=== PATIENT | female | born 1965 | race Caucasian/White ===

== ENCOUNTER 2021-12-14 02:30 | Outpatient (CLI) | payer BC, SELFPAY ==
[2021-12-14 09:07] LABS: Source Nasal/Nares
[2021-12-14 13:59] LABS: COVID-19 PCR Negative (Negative)
== END 2021-12-14 02:31 | disposition home or self-care (01) ==
PROVIDERS: PCP Nurse Practitioner Family; Visit Provider Surgery
DX: Z20.822 Contact with and (suspected) exposure to COVID-19 (principal); Z01.818 Encounter for other preprocedural examination
CPT/HCPCS: 87635

== ENCOUNTER 2021-12-16 11:28 | Day surgery (SDC) | payer BC, SELFPAY ==
[2021-12-16] VITALS (12 sets, daily range): BP systolic 117–153; BP diastolic 77–93; PULSE 56–100; RESP 14–19; TEMP 36–36.8; O2SAT 95–100; BMI 25.1
--- NOTE | 2021-12-16 07:40 | W.PM.OP ---
Date of service: 12/16/21 Time of Service: 14:37 Operative Note Operative Note DATE OF PROCEDURE: 12/16/21 PRE-OP DIAGNOSIS: Biliary Colic POST-OP DIAGNOSIS: same PROCEDURE: Laparoscopic Cholecystectomy SURGEON: Angelita Longoria POLICY CHECKER: Conchita Bill ANESTHESIA TYPE: Local By Surgeon and General LMA/ETT Refer to Anesthesia Record ESTIMATED BLOOD LOSS: 15 PATHOLOGY: other (Gallbladder) COMPLICATIONS: None Patient was transported to: PACU Patient's condition: stable Indications: Mrs Donis is a pleasant 56-year-old female who has been feeling unwell since at least July.? She has intermittent nausea as well as intermittent abdominal pain which is triggered by food.? HIDA scan revealed a low ejection fracture.? We discussed a laparoscopic cholecystectomy in detail including the risks and complications.? Because of her vertigo and MS she may need to stay at least overnight depending on how well she wakes up and whether she has nausea and vomiting.? She did have COVID more than 4 weeks ago but has no residual cough or shortness of breath. Risks, benefits, complications were reviewed with the patient in the office.? Complications include but are not limited to bleeding, infection, injury to stomach, small bowel and large bowel, injury to the pancreas, injury to the common bile duct necessitating drainage and referral to tertiary center for repair, bile leak, adverse reactions to the medications, complications of intubation including a sore throat or injury to the uvula, LA, stroke and even .? Questions were entertained and answered to her satisfaction and she wished to proceed.? No guarantees were given or implied. Proceed with laparoscopic cholecystectomy Findings: normal appearing Gallbladder adhesions of the stomach to the gallbladder Procedure Description: After informed consent was obtained the patient was brought to the operating room, placed in a supine position and monitors were applied. SCDs were applied to her lower extremities and she was placed under general anesthesia and intubated without difficulty. Her abdomen was then prepped and draped in a sterile fashion using ChloraPrep. At this point a timeout was done and the patient's name, date of , procedure type, allergies to medications, metal in her body, antibiotic and DVT prophylaxis, and fire risk was assessed. At this point 0.25% Bupivocaine was injected just above the umbilicus into the dermis and subcutaneous tissue. A 5 mm incision was made with an 11 blade. The skin next to the incision was grasped with penetrating towel clamps and while pulling up on the skin a 5 mm port was placed under direct visualization. The abdomen was insuflated and then 3 more ports were placed. A 12 mm port was placed in the subxiphoid area and two 5 mm ports were placed in the right upper quadrant. The liver was inspected and looked normal. The patient's bed was then turned to the left and her head was brought up. The gallbladder was inspected and there were some adhesions from the omentum to the gallbladder and from the stomach to the gallbladder. The gallbladder was grasped at the body and pushed towards the right shoulder, this allowed me to visualize the neck of the gallbladder. The neck was grasped and pulled towards the right flank and down allowing me to visualize the lymph node. Using a [place] dissector with cautery the lymph node was gently dissected away from the tissues and the fatty tissue was also dissected away. The cystic duct was identified it was normal in size. The duct was dissected 360 degrees using the [place] dissector in order for me to visualize its entrance into the gallbladder. Liver was noted behind it. There were no other structures right behind. Critical view was achieved. 3 clips were placed one proximal and 2 distal and the cystic duct was cut. The cystic artery was then identified and dissected 360 degrees. It was located just medial to the cystic duct. It was visualized going into the gallbladder. Once dissected 3 more clips were placed one proximal and 2 distal and the artery was cut. Using the hook dissector the gallbladder was then dissected away from the liver bed and placed into an Endo Catch bag and pulled through the 12 mm port site. I did have some Bile spill. The 12 mm port was placed back into the abdomen under direct visualization. The liver bed was inspected no bleeding was noted. The abdomen was then irrigated with a liter of normal saline until the effluent was clear. 20 cc of the local was then sparayed over the liver to help with post-operative pain. The 12 mm and the 2 right upper quadrant ports were removed under direct visualization and no bleeding was noted from the fascia. The abdomen was deflated completely and lastly the umbilical port was removed. The skin was cleaned and the incisions were closed with 4-0 Vicryl. The skin was dried and skin affix was applied over the closed incisions. Needle, instrument and sponge counts were correct at the end of the case. At this point the patient was woken up, extubated and taken back to recovery in stable condition. There were no immediate complications.
--- NOTE | 2021-12-16 07:42 | W.PM.DSUDISC ---
Discharge Plan Disposition Patient Disposition: HOME Condition: Good Discharge Details Reason For Visit: cholecystectomy Attending Provider: Angelita Longoria Primary Care Provider: Faizan Calvo Home Meds and New Rx's Prescriptions: New tramadol 50 mg tablet 50 mg PO Q6H PRNQty: 14 0RF Continued acetaminophen [Tylenol Extra Strength] 500 mg tablet 500 mg PO Q6H PRN multivitamin Tablet 1 tab PO DAILY loratadine [Claritin RediTabs] 10 mg tablet,disintegrating 10 mg PO DAILY fluticasone propionate 50 mcg/actuation spray,suspension 1 spray intranasal DAILY Rx Instructions: administer into each nostril Ibuprofen PM 200-25 mg Capsule 2 cap PO QHS PRN Discharge Instructions Instructions: Laparoscopic Cholecystectomy (DC) Additional Instructions: Activity at Home after surgery: 1. Make sure you walk outside at least 4 times per day 2. You should be able to climb a flight of stairs 3. No driving while in pain or taking pain medications 4. No strenuous activity or heavy lifting for 2 weeks (laparoscopic surgery) Diet, Nutrition, & wound healin. Avoid alcohol until after you are recovered from your surgery 2. Make sure to eat plenty of lean protein (meat, fish, eggs, cottage cheese, beans) 3. Eat a variety of fruits and vegetables. Eat plenty of high fiber foods to avoid constipation. 4. Drink plenty of liquids to stay hydrated and avoid constipation Pain Medications: 1. Tylenol 650mg every 6 hours as needed and Ibuprofen 600 mg every 6 hours as needed. You may alternate between the 2 medications every 3 hours 2. If a narcotic has been prescribed take as directed only for breakthrough pain For Constipation: 1. Take Milk of Magnesia or MiraLax as needed for constipation Other: 1. You may shower daily. Do not scrub the incisions 2. Do not soak the incisions for 1 week 3. You may alternate ice and heat as needed for pain and swelling Wound Care: 1. Keep the incisions clean and dry Please call our office if you develop: 1. Fevers >101.5 2. Nausea or Vomiting 3. Worsening pain 4. Redness and thick discharge from the wounds If after hours please call the Hospital at and ask to speak to the on-call surgeon Referrals: Angelita Longoria MD [ [facility] STAFF PHYSICIAN] - 01/04/22 10:30 am Activity:: see above Remove Dressings/Wound Care:: 24 hours Shower/Bathe:: 24 hours Diet:: low fat Discharge Orders Discharge Orders: Discharge Order (Routine); Ordered 12/16/21 Ordered By: Angelita Longoria
--- NOTE | 2021-12-16 10:07 | W.ANESPRE ---
General Info Date of Service Date Performed: 12/16/21 Height: 5 ft 3 in Weight: 64.41 kg Body Mass Index (BMI): 25.1 Surgical Procedure: Operation Date: 12/16/21 13:10 Proposed Procedure Side Surgeon p Cholecystectomy Laparoscopic Angelita Longoria MD Meds Allergies and Home Medications Allergies Allergy/AdvReac Type Severity Reaction Status Date / Time amitriptyline Allergy Verified 12/16/21 11:50 Home Medication Medication Instructions Recorded fluticasone propionate 50 1 spray intranasal DAILY 11/16/21 mcg/actuation nasal spray,suspension acetaminophen 500 mg tablet 500 mg PO Q6H PRN 12/03/21 (Tylenol Extra Strength) multivitamin 1 tab PO DAILY 12/03/21 loratadine 10 mg disintegrating 10 mg PO DAILY 12/14/21 tablet (Claritin RediTabs) ibuprofen 200 mg-diphenhydramine 2 cap PO QHS PRN 12/16/21 HCl 25 mg capsule (Ibuprofen PM) Current Visit Medications: Current Medications Generic Name Dose Route Start Last Admin Trade Name Freq PRN Reason Stop Dose Admin Acetaminophen 1,000 mg 12/16/21 06:00 Acetaminophen 500 Mg Tab PO 12/16/21 16:00 PREOP KENNEDY Celecoxib 200 mg 12/16/21 06:00 Celecoxib 200 Mg Cap PO 12/16/21 16:00 PREOP KENNEDY Gabapentin 300 mg 12/16/21 06:00 Gabapentin 300 Mg Cap PO 12/16/21 16:00 PREOP KENNEDY Ringer's Solution 1,000 mls @ 80 mls/hr 12/16/21 06:00 IV 01/14/22 23:59 INFUSION [facility] Ampicillin Sodium/Sulbactam 100 mls @ 200 mls/hr 12/16/21 06:00 Sodium 3 gm/ Sodium Chloride IVPB 12/16/21 16:00 PREOP KENNEDY Ondansetron HCl 4 mg/ Sodium 52 mls @ 200 mls/hr 12/16/21 07:41 Chloride IVPB Q6H PRN PRN IV Miscellaneous Supplies 1 each 12/16/21 06:00 Iv Access IV 01/14/22 23:59 DIRECTED KENNEDY Oxycodone HCl 5 mg 12/16/21 07:41 Oxycodone 5 Mg Tab PO Q3H PRN PRN Pain Sodium Chloride 0 ml 12/16/21 06:00 Normal Saline Flush 10 Ml Syr IV 01/14/22 23:59 PRN PRN Sodium Chloride 0 ml 12/16/21 06:00 Normal Saline 10 Ml Vial IJ 01/14/22 23:59 DIRECTED PRN Sterile Water 0 ml 12/16/21 06:00 Water,Injection,Sterile 10 Ml Vial IJ 01/14/22 23:59 DIRECTED PRN PFSH Active Problems Active Problems: Problem Status Onset Code Biliary dyskinesia K82.8 Medical History Medical History Acute otitis media Adhesive capsulitis of shoulder Allergic rhinitis Arthritis Cerumen impaction Cervical radiculopathy COVID-19 Per pt.states it was over 2 months ago, not sure of exact positive date Cyst of left ovary Dizziness Pt. states ENT is [place] [facility] [place] see if dizziness is related to gall bladder issues. Malignant melanoma of skin Multiple sclerosis Numbness in the legs, is able to ambulate can be shakey at times. Pt. states she was told by neurology (telehealth call) since she has had these current issues with her gallbadder it had reawoken previous symptoms Perforation of left tympanic membrane Problem of both ears Tenosynovitis Vertigo Surgical History Surgical History H/O: H/O: hysterectomy Tobacco Smoking/Tobacco Use Status: Current every day Tobacco Type: cigarettes Smoking packs per day: 0.5 Smoking cigarettes per day: 10.0 Alcohol Alcohol Intake: never Substance Use Substance use: Never Substance use type: does not use Vital Signs and Lab Results Lab Results Blood Type / Crossmatch: No Data to Display Complete Blood Count: No Data to Display Complete Metabolic Panel: No Data to Display Liver Function Panel: No Data to Display Coagulation Panel: No Data to Display Cardiac Panel: No Data to Display Arterial Blood Gas: No Data to Display Venous Blood Gas: No Data to Display Pancreas Panel: No Data to Display Thyroid Panel: No Data to Display Infectious Disease: Coronavirus (COVID-19)(PCR) Negative (Negative) 12/14/21 07:50 Coronavirus 2019 Source Nasal/Nares 12/14/21 07:50 Blood Cultures: No Data to Display Toxicology Panel: No Data to Display Panel: No Data to Display Anesthesia Assessment and Plan Anesthesia History Personal History: PONV Family History: No Family History of Anesthesia Complications Exercise Tolerance Exercise Tolerance: Metabolic Equivalents>4 Pertinent Negatives Pertinent Negatives: No Symptoms of GERD, No Major Cardiovascular Symptoms or Complaints, No Major Pulmonary Symptoms or Complaints and No History of CVA/TIA Cardiac & Pulmonary Exam Cardiac Exam: Normal S1/S2 Heart Sounds Pulmonary Exam: Clear Bilateral Breath Sounds Implantable Cardiac Device Does patient have a Pacemaker or an ICD?: No Airway Exam Known Difficult Airway: No Mallampati Class: 2 Mouth Opening: Normal (> 3cm) Thyromental Distance: Greater than 3 cm Neck Range of Motion: Other (History cervical radiopathy) Neck Circumference: Normal Teeth Condition: Normal Dentition ASA Classification ASA Score: ASA 2 Emergency Case?: No NPO Status NPO Status: NPO Clears >2 hours, Solids >8 hours Status Status: History of Hysterectomy Anesthesia Plan Resuscitation Status: Full Code Anesthesia Technique: General Anesthesia Airway Planned: Endotracheal Tube Monitors Used: Standard Monitors Preoperative Comments:: Multiple Sclerosis Hx, with muscle weakness
[2021-12-16] MEDS: Gabapentin 300 MG CAP PO (12:05)
[2021-12-16] MEDS: Celecoxib 200 MG CAP PO (12:05)
[2021-12-16] MEDS: Acetaminophen 500 MG TAB 1000 MG PO (12:06)
[2021-12-16] MEDS: Lactated Ringers 1,000 ML 80 ML IV (12:15)
[2021-12-16] MEDS: AMPICILLIN/SULBACTAM 3 GM in Normal Saline 100 ML IVPB (13:18)
--- NOTE | 2021-12-16 14:05 | GB_PTH ---
PATIENT: Diamond Donis LOC: [facility] U#:[id number] AGE/SX: 56/F ROOM: RE12/16/[address]: Angelita Longoria MD : [id number] BED: DIS: 12/16/2021 SPEC #: [id number] RECD: 12/16/21 18:17 STATUS: NACHO REQ #: [id number] LEENA: 12/16/21 14:[address]: Angelita Longoria DEPT: Surgical Specimen RECD BY: Aicha García ENTERED: 12/16/21 18:18 SP TYPE: GB OTHR DR: Faizan Calvo Tissues: 1 - GALLBLADDER Procedures: GROSS AND MICRO LEVEL 3 Comments: [id number]
--- NOTE | 2021-12-16 15:51 | W.ANESPOSTOP ---
Postoperative Evaluation Date, Time and Location Date Performed: 12/16/21 Time Performed: 15:51 Patient Location: PACU Vital Signs Most Recent Imported Vital Signs: Most Recent Vital Signs Temp Pulse Resp BP Pulse Ox 36.5 C 56 L 14 153/87 H 100 12/16/21 15:45 12/16/21 15:45 12/16/21 15:45 12/16/21 15:45 12/16/21 15:45 Pain Score Most Recent Pain Score: Most Recent Pain Score Pain Level 3 12/16/21 15:45 Assessment Mental Status: Arousable with meaningful communication Airway and Respiratory Function: Patent airway with normal (patient baseline) respiratory exam Cardiovascular Function: Hemodynamically Stable Hydration Status: Adequately Hydrated Nausea & Vomiting: No Nausea or Vomiting Pain: Pain is tolerable per patient Peripheral Nerve Block: Patient did not receive a nerve block
--- NOTE | 2021-12-22 10:32 | PDOC.ANES ---
Date of service: 12/22/21 Time of Service: 10:32 Anesthesia Note Report Anesthesia Note: Notified earlier this morning of a patient calling the DSU and requesting a call back from Anesthesia due to questions about prolonged dilation of her pupil on the same side as the scopolamine patch. Patient history of MS, vertigo, leg numbness. I called the patient and she reports that the dilation worsens every time she bends over to wash her hair. I asked if it was when she leaned over in general and she was uncertain. She states that she removed her patch on Monday and that it was dilated then. When the dilation did not resolve by monday she went to the emergency room and was evaluated for potential CVA. Patient was transported to [facility] for an MRI which came back, per the patient, as having some swelling. They ruled out a CVA. The patient does have an appointment [place] [facility] [place] this coming m[place] and an ophthalmology appointment on 12/29. The patient reports that she is still dilated. We will follow up with the neurology note this coming monday and I will make her primary provider aware. I reminded the patient to call us with any further questions or concerns.
== END 2021-12-16 17:46 | disposition home or self-care (01) ==
PROVIDERS: PCP Nurse Practitioner Family; Visit Provider Surgery
PROC: 0FT44ZZ Resection of Gallbladder, Percutaneous Endoscopic Approach (ICD-10-PCS; CPT 47562; principal; 2021-12-16 13:00)
DX: K85.20 Alcohol induced acute pancreatitis without necrosis or infection (principal); G35 Multiple sclerosis
CPT/HCPCS: 47562; 88304; J0131; J0295; J1100; J1200; J1885; J2250; J2405